=== PATIENT | female | born 1970 | race Two or more races ===

== ENCOUNTER 2021-02-07 18:34 | Emergency (ER) | payer MEDICAID, OTHER ==
[~2021-02-07] VITALS: Ht 170.2 cm; Wt 83.9 kg
[~2021-02-07 18:34] MED LIST: ALBU2.5V11 MC; BECL8.7A6 IH
[2021-02-07 18:35] VITALS: BP 137/84
--- NOTE | 2021-02-07 18:45 | NUR ---
AT BEDSIDE FOR EVAL.
--- NOTE | 2021-02-07 19:04 | NUR ---
pt fell on 02/04/21 pain got worse ice tp rt knee 06/30 painAWAITING EVALUATION BY ER PROVIDER.
--- NOTE | 2021-02-07 19:07 | NUR ---
xray done a at bedside
[2021-02-07] MEDS ORDERED: NAPR-1164 PO (19:52)
--- NOTE | 2021-02-07 20:34 | NUR ---
Patient discharged to home in stable condition. Written and verbal after care instructions given. Patient verbalizes understanding of instruction.
== END 2021-02-07 21:21 | disposition home or self-care (01) ==
LOC: ER 18:40
DX: M25.461 Effusion, right knee (principal); M17.11 Unilateral primary osteoarthritis, right knee; J45.909 Unspecified asthma, uncomplicated; Z79.899 Other long term (current) drug therapy
CPT/HCPCS: 73564-TC

== ENCOUNTER 2022-03-15 21:15 | Emergency (ER) | payer OTHER ==
[~2022-03-15] VITALS: Ht 170.2 cm; Wt 90.7 kg
[~2022-03-15 21:15] MED LIST changes: +NAPR-1164 PO
--- NOTE | 2022-03-15 22:26 | NUR ---
CALLED FOR TRAMIHIR, NOT IN WAITING ROOM
--- NOTE | 2022-03-16 00:28 | NUR ---
TO ER BED 11. BIBS C/O EPIGASTRIC PAIN AND DIARRHEA X 1 MONTH. PAIN IS DESCRIBES "BURNING" , WORSE WHEN EATING. NOT RELIEVED BY OTC MEDS. DENIES ANY CHEST PAIN. NOT IN RESPIRATORY DISTRESS. CHANGED INTO GOWN. CONNECTED TO MONITOR.
[2022-03-16] MEDS ORDERED: DICY20TA11 PO (00:42)
[2022-03-16] MEDS ORDERED: LOPE2CAP40 PO (00:42)
[2022-03-16 00:47] VITALS: BP 138/80
[2022-03-16] MEDS ORDERED: MAG HYDROX/AL HYDROX/SIMETH 30 ML UDC ONE (00:53)
[2022-03-16] MEDS ORDERED: LIDOCAINE VISCOUS 2% UD 15 ML UDC ONE (00:54)
[2022-03-16] MEDS ORDERED: LORAZEPAM 0.5 MG TABLET ONE (00:54)
[2022-03-16] MEDS ORDERED: LORAZEPAM 1 MG TABLET PO ONE (01:00)
[2022-03-16] MEDS ORDERED: LIDOCAINE VISCOUS 2% UD 15 ML UDC MM ONE (01:00)
[2022-03-16] MEDS ORDERED: MAG HYDROX/AL HYDROX/SIMETH 30 ML UDC PO ONE (01:00)
--- NOTE | 2022-03-16 01:05 | NUR ---
Patient discharged to home in stable condition. Written and verbal after care instructions given. Patient verbalizes understanding of instruction.
== END 2022-03-16 01:14 | disposition home or self-care (01) ==
LOC: ER 21:17
DX: R19.7 Diarrhea, unspecified (principal); J45.909 Unspecified asthma, uncomplicated; Z79.51 Long term (current) use of inhaled steroids; Z79.899 Other long term (current) drug therapy